=== PATIENT | female | born 1930 | race African-American/Black ===

== ENCOUNTER 2017-09-10 23:36 | Inpatient (IN) | payer MEDICARE, BC, MEDICAID ==
[~2017-09-10] VITALS: Ht 165.1 cm; Wt 89.4 kg
[~2017-09-10 23:36] MED LIST: ASPI-1073 PO; ATOR10TA PO; BACL-141 PO; BISA10SU97 PR; CILO100T PO; CITA20TA19 PO; DOCU250C14 PO; GABA100C PO; HYDR-3735 PO; MAG355OR39 PO; MAGN800O PO; METF500T4 PO; MONT10TA21 PO; PROP1DRO OP; TRAM50TA PO
[2017-09-11] MEDS ORDERED: OSELTAMIVIR 75MG CAPSULE PO ONE (00:45)
[2017-09-11] MEDS ORDERED: SODIUM CHLORIDE 0.9% 1000ML BAG (SEPSIS BOLUS) IV ONE (00:45)
[2017-09-11] MEDS ORDERED: LEVOFLOXACIN 750MG PREMIX 150 ML IV ONE (00:45)
[2017-09-11 02:05] LABS: BASOPHILS % 0.6 % (0.0-2.0); EOSINOPHILS % 0.1 % (0.0-5.0); HEMATOCRIT. 44.6 % (36.0-48.0); HEMOGLOBIN. 14.8 g/dL (12.0-16.0); LYMPHOCYTES % 9.1 % (20.0-50.0); MEAN CORPUSCULAR HEMOGLOBIN 28.3 pg (28.0-32.0); MEAN CORPUSCULAR VOLUME 85.1 fL (81.0-99.0); MEAN PLATELET VOLUME 8.1 fl (7.4-10.4); MONOCYTES % 3.8 % (2.0-8.0); NEUTROPHILS % 86.4 % (40.0-76.0); PLATELET 230 x1000/uL (130-400); RED BLOOD CELL COUNT 5.24 mill/uL (4.2-5.4); RED CELL DISTRIBUTION WIDTH 14.2 % (11.6-14.6)
[2017-09-11 02:09] LABS: PARTIAL THROMBOPLASTIN TIME 27.3 sec (23.4-31.0); PROTHROMBIN TIME 10.7 sec (9.4-11.6)
[2017-09-11 02:10] LABS: CHLORIDE 106 mEq/L (98-107)
[2017-09-11 02:15] LABS: TROPONIN I < 0.02 ng/mL (0.00-0.04)
[2017-09-11] MEDS ORDERED: LIDOCAINE HCL/PF 1% 10 MG/ML 5ML VIAL ONE (03:49)
[2017-09-11 04:49] LABS: CLARITY URINE CLEAR (CLEAR); COLOR URINE YELLOW (YELLOW); KETONES URINE NEGATIVE (NEGATIVE); LEUKOCYTE ESTERASE URINE NEGATIVE (NEGATIVE); NITRITE URINE NEGATIVE (NEGATIVE); OCCULT BLOOD URINE TRACE (NEGATIVE); PROTEIN URINE TRACE (NEGATIVE); SPECIFIC GRAVITY URINE 1.024 (1.005-1.030); UROBILINOGEN URINE 0.2 E.U./dL (0.2-1.0)
[2017-09-11 06:30] VITALS: BP 134/65
[2017-09-11 08:00] VITALS: BP 132/72
[2017-09-11] MEDS ORDERED: MAGNESIUM/ALUMINUM HYDROXIDE/SIMETHICONE 30ML UDC PO PRN ×2 (10:00→21:30)
[2017-09-11] MEDS ORDERED: ACETAMINOPHEN 650MG/20.3ML UDC GT PRN (10:00)
[2017-09-11] MEDS ORDERED: ONDANSETRON HCL 4MG/2ML VIAL IV PRN (10:00)
[2017-09-11] MEDS ORDERED: CEFTRIAXONE 500 MG in DEXTROSE 5% WATER 50 ML IV SCH (10:00)
[2017-09-11 10:18] VITALS: BP 132/72
[2017-09-11] MEDS ORDERED: CEFTRIAXONE 1 G PREMIX 50 ML IV SCH (11:00)
[2017-09-11] MEDS: ENOXAPARIN 40MG/0.4ML SYR SUBCUT SCH (11:52)
[2017-09-11] MEDS ORDERED: CEFEPIME 2,000 MG in DEXT 5% WATER 100 ML IV SCH (13:15)
[2017-09-11] MEDS ORDERED: IPRATROPIUM/ALBUTEROL 0.5-3(2.5)MG/3ML NEB HHN PRN (13:15)
[2017-09-11] MEDS: FAMOTIDINE 20MG TABLET PO SCH (15:48)
[2017-09-11] MEDS: METRONIDAZOLE 500 MG PREMIX 100 ML IV SCH ×2 (15:48→22:47)
[2017-09-11 16:00] VITALS: BP 134/78
[2017-09-11] MEDS ORDERED: BUDESONIDE 0.5MG/2ML NEB HHN SCH (18:00)
[2017-09-11] MEDS: CEFEPIME 2,000 MG in DEXT 5% WATER 100 ML IV SCH (18:02)
[2017-09-11 20:00] VITALS: BP 154/65
[2017-09-11] MEDS ORDERED: DEXTROSE 50% WATER 50ML SYRINGE IV PRN (20:30)
[2017-09-11] MEDS ORDERED: FAMOTIDINE 20MG TABLET PO SCH (21:00)
[2017-09-11] MEDS ORDERED: MEDICATION NOT ON FORMULARY EA (Fluticasone/Salmeterol (Advair 250-50 Diskus) 1 EACH) IH SCH (21:30)
[2017-09-11] MEDS ORDERED: MAGNESIUM HYDROXIDE PO PRN (21:30)
[2017-09-11] MEDS ORDERED: CYCLOSPORINE OP SCH (21:30)
[2017-09-11] MEDS ORDERED: HYDROXYZINE 10 MG TABLET PO PRN (21:30)
[2017-09-11] MEDS ORDERED: NEOM10DR11 RIGHT EAR (21:40)
[2017-09-11] MEDS ORDERED: OLOP2.5D EACHEYE (21:40)
[2017-09-11] MEDS ORDERED: FLUT1DIS3 IH (21:40)
[2017-09-11] MEDS ORDERED: DICL2.5D8 OP (21:40)
[2017-09-11] MEDS ORDERED: CYCL30DR OP (21:40)
[2017-09-11] MEDS ORDERED: OMEG-118 PO (21:40)
[2017-09-11] MEDS: IPRATROPIUM/ALBUTEROL 0.5-3(2.5)MG/3ML NEB HHN SCH (21:40)
[2017-09-11] MEDS ORDERED: GLIP10TA10 PO (21:40)
[2017-09-11] MEDS ORDERED: MULT-1146 PO (21:40)
[2017-09-11] MEDS ORDERED: MAGNESIUM HYDROXIDE 400MG/5ML 30ML UDC PO PRN (22:15)
[2017-09-11] MEDS: INSULIN LISPRO 100 UNITS/ML SUBCUT SCH (22:34)
[2017-09-11] MEDS: BLOOD SUGAR DIAGNOSTIC STRIP TEST SCH (22:43)
[2017-09-11] MEDS: GUAIFENESIN 600MG ER TABLET PO SCH (22:47)
[2017-09-11] MEDS: TRAMADOL 50MG TABLET PO PRN (22:50)
[2017-09-11] MEDS: CLONIDINE 0.1MG TABLET PO PRN (23:54)
[2017-09-12] VITALS (7 sets, daily range): BP systolic 116–177; BP diastolic 62–95
[2017-09-12] MEDS ORDERED: NEOMYCIN-POLYMYXIN B-HYDROCORTISONE 1% OTIC SOLN 10ML RIGHT EAR SCH
[2017-09-12] MEDS: POLYVINYL ALCOHOL OPHTH DROPS 15ML BOTHEYE PRN (00:29)
[2017-09-12] MEDS: BLOOD SUGAR DIAGNOSTIC STRIP TEST SCH ×4 (06:38→21:47)
[2017-09-12] MEDS: INSULIN LISPRO 100 UNITS/ML SUBCUT SCH ×4 (06:39→21:51)
[2017-09-12] MEDS: METRONIDAZOLE 500 MG PREMIX 100 ML IV SCH ×3 (06:40→21:34)
[2017-09-12 07:05] LABS: BASOPHILS % 0.3 % (0.0-2.0); EOSINOPHILS % 1.6 % (0.0-5.0); HEMATOCRIT. 35.5 % (36.0-48.0); HEMOGLOBIN. 12.3 g/dL (12.0-16.0); LYMPHOCYTES % 22.4 % (20.0-50.0); MEAN CORPUSCULAR HEMOGLOBIN 29.4 pg (28.0-32.0); MEAN CORPUSCULAR VOLUME 84.6 fL (81.0-99.0); MONOCYTES % 7.1 % (2.0-8.0); NEUTROPHILS % 68.6 % (40.0-76.0); PLATELET 172 x1000/uL (130-400)
[2017-09-12 07:38] LABS: CHLORIDE 109 mEq/L (98-107)
[2017-09-12] MEDS ORDERED: PEG OP SCH (09:00)
[2017-09-12] MEDS ORDERED: NEOMYCIN-POLYMYXIN-HYDROCORTISONE 1% OTIC SUSP 10ML RIGHT EAR SCH (09:00)
[2017-09-12] MEDS ORDERED: OLOPATADINE HCL EACHEYE SCH (09:00)
[2017-09-12] MEDS ORDERED: MEDICATION NOT ON FORMULARY EA (Multivitamin (Multi Vitamin Daily) 1 TAB) PO SCH (09:00)
[2017-09-12] MEDS ORDERED: BISACODYL 10MG SUPP PR PRN (09:00)
[2017-09-12] MEDS ORDERED: PROPYLENE GLYCOL OP SCH (09:00)
[2017-09-12] MEDS ORDERED: [UNRECOGNIZED DRUG - OTHER] OP SCH (09:00)
[2017-09-12] MEDS: IPRATROPIUM/ALBUTEROL 0.5-3(2.5)MG/3ML NEB HHN SCH ×3 (09:16→20:49)
[2017-09-12] MEDS: ASPIRIN 81MG EC TABLET PO SCH (09:41)
[2017-09-12] MEDS: FISH OIL/OMEGA-3 FATTY ACIDS 1000MG CAPSULE PO SCH ×2 (09:41→17:49)
[2017-09-12] MEDS: METFORMIN HCL 500MG TABLET PO SCH ×2 (09:41→17:53)
[2017-09-12] MEDS: LISINOPRIL 40MG TABLET PO SCH ×2 (09:41→21:32)
[2017-09-12] MEDS: BACLOFEN 10MG TABLET PO SCH ×2 (09:42→17:49)
[2017-09-12] MEDS: CILOSTAZOL 100MG TABLET PO SCH ×2 (09:42→17:47)
[2017-09-12] MEDS: GABAPENTIN 100MG CAPSULE PO SCH ×3 (09:42→17:51)
[2017-09-12] MEDS: MONTELUKAST SODIUM 10MG TABLET PO SCH (09:42)
[2017-09-12] MEDS: GUAIFENESIN 600MG ER TABLET PO SCH ×2 (09:42→21:00)
[2017-09-12] MEDS: CEFEPIME 2,000 MG in DEXT 5% WATER 100 ML IV SCH (09:43)
[2017-09-12] MEDS: MULTIVITAMINS,THER W-MINERALS TABLET PO SCH (09:43)
[2017-09-12] MEDS: ENOXAPARIN 40MG/0.4ML SYR SUBCUT SCH (09:43)
[2017-09-12] MEDS: FAMOTIDINE 20MG TABLET PO SCH (09:43)
[2017-09-12] MEDS: GLIPIZIDE 10MG TABLET PO SCH ×2 (09:43→17:49)
[2017-09-12] MEDS: DICLOFENAC SODIUM 0.1% OPHTH 2.5 ML BOTTLE BOTHEYE SCH ×2 (09:44→17:49)
[2017-09-12] MEDS: BUDESONIDE 0.5MG/2ML NEB HHN SCH (20:49)
[2017-09-12] MEDS: CITALOPRAM HYDROBROMIDE 20MG TABLET PO SCH (21:31)
[2017-09-12] MEDS: DOCUSATE SODIUM 250MG CAPSULE PO SCH (21:31)
[2017-09-12] MEDS: ATORVASTATIN CALCIUM 10MG TABLET PO SCH (21:31)
[2017-09-12] MEDS: TRAMADOL 50MG TABLET PO PRN (21:47)
[2017-09-13] VITALS: BP_SYST 104; BP_SYST 126; BP_DIAS 55; BP_DIAS 71
[2017-09-13] MEDS: IPRATROPIUM/ALBUTEROL 0.5-3(2.5)MG/3ML NEB HHN SCH ×4 (02:34→20:44)
[2017-09-13 04:00] VITALS: BP 122/55
[2017-09-13] MEDS: METRONIDAZOLE 500 MG PREMIX 100 ML IV SCH ×3 (05:11→22:19)
[2017-09-13] MEDS: INSULIN LISPRO 100 UNITS/ML SUBCUT SCH ×4 (05:51→21:00)
[2017-09-13] MEDS: BLOOD SUGAR DIAGNOSTIC STRIP TEST SCH ×4 (05:51→21:00)
[2017-09-13 08:00] VITALS: BP_SYST 128; BP_SYST 138; BP_DIAS 57; BP_DIAS 63
[2017-09-13] MEDS: BUDESONIDE 0.5MG/2ML NEB HHN SCH ×2 (08:46→20:44)
[2017-09-13] MEDS: CEFEPIME 2,000 MG in DEXT 5% WATER 100 ML IV SCH (09:06)
[2017-09-13] MEDS: CILOSTAZOL 100MG TABLET PO SCH ×2 (09:06→18:41)
[2017-09-13] MEDS: MONTELUKAST SODIUM 10MG TABLET PO SCH (09:07)
[2017-09-13] MEDS: GABAPENTIN 100MG CAPSULE PO SCH ×3 (09:07→18:41)
[2017-09-13] MEDS: GUAIFENESIN 600MG ER TABLET PO SCH ×2 (09:07→22:18)
[2017-09-13] MEDS: METFORMIN HCL 500MG TABLET PO SCH ×2 (09:07→18:41)
[2017-09-13] MEDS: FISH OIL/OMEGA-3 FATTY ACIDS 1000MG CAPSULE PO SCH ×2 (09:07→18:41)
[2017-09-13] MEDS: BACLOFEN 10MG TABLET PO SCH ×2 (09:07→18:41)
[2017-09-13] MEDS: ASPIRIN 81MG EC TABLET PO SCH (09:08)
[2017-09-13] MEDS: LISINOPRIL 40MG TABLET PO SCH ×2 (09:08→22:19)
[2017-09-13] MEDS: GLIPIZIDE 10MG TABLET PO SCH ×2 (09:08→18:41)
[2017-09-13] MEDS: FAMOTIDINE 20MG TABLET PO SCH (09:09)
[2017-09-13] MEDS: DICLOFENAC SODIUM 0.1% OPHTH 2.5 ML BOTTLE BOTHEYE SCH ×2 (09:09→18:41)
[2017-09-13] MEDS: MULTIVITAMINS,THER W-MINERALS TABLET PO SCH (09:09)
[2017-09-13] MEDS: ENOXAPARIN 40MG/0.4ML SYR SUBCUT SCH (09:09)
[2017-09-13 12:00] VITALS: BP 138/63
[2017-09-13 16:00] VITALS: BP 142/92
[2017-09-13 20:00] VITALS: BP 176/83
[2017-09-13] MEDS: DOCUSATE SODIUM 250MG CAPSULE PO SCH (21:00)
[2017-09-13] MEDS: ATORVASTATIN CALCIUM 10MG TABLET PO SCH (22:18)
[2017-09-13] MEDS: CITALOPRAM HYDROBROMIDE 20MG TABLET PO SCH (22:18)
[2017-09-14] MEDS: IPRATROPIUM/ALBUTEROL 0.5-3(2.5)MG/3ML NEB HHN SCH ×4 (01:05→20:06)
[2017-09-14 03:53] VITALS: BP 135/73
[2017-09-14] MEDS: METRONIDAZOLE 500 MG PREMIX 100 ML IV SCH ×2 (05:11→13:46)
[2017-09-14] MEDS: BLOOD SUGAR DIAGNOSTIC STRIP TEST SCH ×4 (05:51→20:53)
[2017-09-14] MEDS: INSULIN LISPRO 100 UNITS/ML SUBCUT SCH ×4 (05:51→20:53)
[2017-09-14] MEDS: METFORMIN HCL 500MG TABLET PO SCH ×2 (07:15→17:15)
[2017-09-14 08:00] VITALS: BP 110/58
[2017-09-14] MEDS: BUDESONIDE 0.5MG/2ML NEB HHN SCH ×2 (09:00→20:06)
[2017-09-14] MEDS: GLIPIZIDE 10MG TABLET PO SCH ×2 (09:00→18:14)
[2017-09-14] MEDS: GUAIFENESIN 600MG ER TABLET PO SCH ×2 (09:00→21:08)
[2017-09-14] MEDS: DICLOFENAC SODIUM 0.1% OPHTH 2.5 ML BOTTLE BOTHEYE SCH ×2 (09:00→18:52)
[2017-09-14] MEDS: CEFEPIME 2,000 MG in DEXT 5% WATER 100 ML IV SCH (10:56)
[2017-09-14] MEDS: CILOSTAZOL 100MG TABLET PO SCH ×2 (10:56→18:47)
[2017-09-14] MEDS: POLYVINYL ALCOHOL OPHTH DROPS 15ML BOTHEYE PRN (10:56)
[2017-09-14] MEDS: ASPIRIN 81MG EC TABLET PO SCH (10:57)
[2017-09-14] MEDS: MULTIVITAMINS,THER W-MINERALS TABLET PO SCH (10:57)
[2017-09-14] MEDS: FISH OIL/OMEGA-3 FATTY ACIDS 1000MG CAPSULE PO SCH ×2 (10:57→18:46)
[2017-09-14] MEDS: MONTELUKAST SODIUM 10MG TABLET PO SCH (10:57)
[2017-09-14] MEDS: FAMOTIDINE 20MG TABLET PO SCH (10:57)
[2017-09-14] MEDS: BACLOFEN 10MG TABLET PO SCH ×2 (10:57→18:46)
[2017-09-14] MEDS: GABAPENTIN 100MG CAPSULE PO SCH ×3 (10:57→18:46)
[2017-09-14] MEDS: LISINOPRIL 40MG TABLET PO SCH ×2 (10:57→21:08)
[2017-09-14] MEDS: ENOXAPARIN 40MG/0.4ML SYR SUBCUT SCH (10:58)
[2017-09-14 12:00] VITALS: BP 216/105
[2017-09-14 16:00] VITALS: BP 178/87
[2017-09-14] MEDS: CLONIDINE 0.1MG TABLET PO PRN (18:53)
[2017-09-14 20:00] VITALS: BP 125/66
[2017-09-14] MEDS: CITALOPRAM HYDROBROMIDE 20MG TABLET PO SCH (21:07)
[2017-09-14] MEDS: ATORVASTATIN CALCIUM 10MG TABLET PO SCH (21:08)
[2017-09-14] MEDS: DOCUSATE SODIUM 250MG CAPSULE PO SCH (21:08)
[2017-09-15] VITALS: BP 121/69
[2017-09-15] MEDS: METRONIDAZOLE 500 MG PREMIX 100 ML IV SCH ×3 (00:13→13:44)
[2017-09-15] MEDS: IPRATROPIUM/ALBUTEROL 0.5-3(2.5)MG/3ML NEB HHN SCH ×3 (01:50→15:18)
[2017-09-15 04:00] VITALS: BP 122/66
[2017-09-15] MEDS: INSULIN LISPRO 100 UNITS/ML SUBCUT SCH ×3 (06:58→17:15)
[2017-09-15] MEDS: BLOOD SUGAR DIAGNOSTIC STRIP TEST SCH ×4 (06:58→18:01)
[2017-09-15 08:00] VITALS: BP 107/74
[2017-09-15] MEDS: BUDESONIDE 0.5MG/2ML NEB HHN SCH (08:10)
[2017-09-15] MEDS: GUAIFENESIN 600MG ER TABLET PO SCH (09:00)
[2017-09-15] MEDS: LISINOPRIL 40MG TABLET PO SCH (09:00)
[2017-09-15] MEDS: ENOXAPARIN 40MG/0.4ML SYR SUBCUT SCH (09:16)
[2017-09-15] MEDS: BACLOFEN 10MG TABLET PO SCH ×2 (09:17→19:00)
[2017-09-15] MEDS: FISH OIL/OMEGA-3 FATTY ACIDS 1000MG CAPSULE PO SCH ×2 (09:17→19:00)
[2017-09-15] MEDS: CILOSTAZOL 100MG TABLET PO SCH ×2 (09:17→19:00)
[2017-09-15] MEDS: MONTELUKAST SODIUM 10MG TABLET PO SCH (09:17)
[2017-09-15] MEDS: CEFEPIME 2,000 MG in DEXT 5% WATER 100 ML IV SCH (09:17)
[2017-09-15] MEDS: DICLOFENAC SODIUM 0.1% OPHTH 2.5 ML BOTTLE BOTHEYE SCH ×2 (09:17→19:00)
[2017-09-15] MEDS: GABAPENTIN 100MG CAPSULE PO SCH ×3 (09:17→19:00)
[2017-09-15] MEDS: MULTIVITAMINS,THER W-MINERALS TABLET PO SCH (09:18)
[2017-09-15] MEDS: METFORMIN HCL 500MG TABLET PO SCH ×2 (09:18→17:15)
[2017-09-15] MEDS: GLIPIZIDE 10MG TABLET PO SCH ×2 (09:18→17:00)
[2017-09-15] MEDS: ASPIRIN 81MG EC TABLET PO SCH (09:18)
[2017-09-15] MEDS: FAMOTIDINE 20MG TABLET PO SCH (09:18)
[2017-09-15 12:00] VITALS: BP 145/74
[2017-09-15 16:00] VITALS: BP 177/79
[2017-09-15 16:53] VITALS: BP 177/79
== END 2017-09-15 20:15 | DRG 871 ==
LOC: ER 23:36 → 5WST 09-11 02:34 → ENRESERV 09-11 02:57
PROVIDERS: ADMIT Internal Medicine Nephrology; ATTEND Internal Medicine Nephrology
DX: A41.9 Sepsis, unspecified organism (principal); J18.9 Pneumonia, unspecified organism; J96.00 Acute respiratory failure, unspecified whether with hypoxia or hypercapnia; I69.354 Hemiplegia and hemiparesis following cerebral infarction affecting left non-dominant side; J44.1 Chronic obstructive pulmonary disease with (acute) exacerbation; J44.0 Chronic obstructive pulmonary disease with (acute) lower respiratory infection; D64.9 Anemia, unspecified; E11.42 Type 2 diabetes mellitus with diabetic polyneuropathy; E66.9 Obesity, unspecified; E78.00 Pure hypercholesterolemia, unspecified; F32.9 Major depressive disorder, single episode, unspecified; I10 Essential (primary) hypertension; K21.9 Gastro-esophageal reflux disease without esophagitis; F03.90 Unspecified dementia, unspecified severity, without behavioral disturbance, psychotic disturbance, mood disturbance, and anxiety; Z66 Do not resuscitate; Z74.01 Bed confinement status; Z87.891 Personal history of nicotine dependence; Z93.0 Tracheostomy status; Z79.899 Other long term (current) drug therapy
CPT/HCPCS: 36415; 36556; 51702; 70450; 71045; 80048; 80053; 81003; 82962; 83036; 83605; 83735; 83880; 84484; 85025; 85610; 85730; 86850; 86900; 87040; 87086; 87804; 93005; 94640; 96374; 97162; 99285; J0692; J0696; J1650; J1815; J1956; J3490; J7030; J7050; J7060; J7620; J7626; A4315

== ENCOUNTER 2020-03-02 11:40 | Inpatient (IN) | payer BC, MEDICAID ==
[~2020-03-02] VITALS: Ht 165.1 cm; Wt 82.1 kg
[~2020-03-02 11:40] MED LIST changes: +CYCL30DR OP; +DICL2.5D8 OP; +FLUT1DIS3 IH; +GLIP10TA10 PO; +METF-414 PO; -METF500T4 PO; +MULT-1146 PO; +NEOM10DR11 RIGHT EAR; +OLOP2.5D EACHEYE; +OMEG-118 PO
[2020-03-02] MEDS ORDERED: ACETAMINOPHEN 325MG TABLET PO PRN (12:45)
[2020-03-02] MEDS ORDERED: MORPHINE SULFATE 2 MG/ML CPJ (NOT FOR IM USE) IV PRN (12:45)
[2020-03-02] MEDS ORDERED: ONDANSETRON HCL 4MG/2ML INJ IV PRN (12:45)
[2020-03-02] MEDS ORDERED: CEFTRIAXONE 1 G PREMIX 50 ML IV SCH (13:00)
[2020-03-02 14:10] LABS: CLARITY URINE CLEAR (CLEAR); COLOR URINE YELLOW (YELLOW); KETONES URINE NEGATIVE (NEGATIVE); LEUKOCYTE ESTERASE URINE 2+ (NEGATIVE); NITRITE URINE NEGATIVE (NEGATIVE); OCCULT BLOOD URINE NEGATIVE (NEGATIVE); PROTEIN URINE NEGATIVE (NEGATIVE); SPECIFIC GRAVITY URINE 1.016 (1.005-1.030); UROBILINOGEN URINE 0.2 E.U./dL (0.2-1.0)
[2020-03-02] MEDS: SODIUM CHLORIDE 0.45% 1,000 ML IV SCH (14:52)
[2020-03-02 23:56] LABS: BASOPHILS % 0.7 % (0.0-2.0); EOSINOPHILS % 2.4 % (0.0-5.0); HEMATOCRIT. 38.5 % (36.0-48.0); HEMOGLOBIN. 12.7 g/dL (12.0-16.0); LYMPHOCYTES % 31.6 % (20.0-50.0); MEAN CORPUSCULAR HEMOGLOBIN 28.3 pg (28.0-32.0); MEAN CORPUSCULAR VOLUME 86.3 fL (81.0-99.0); MEAN PLATELET VOLUME 8.4 fl (7.4-10.4); MONOCYTES % 3.8 % (2.0-8.0); NEUTROPHILS % 61.5 % (40.0-76.0); PLATELET 221 x1000/uL (130-400); RED BLOOD CELL COUNT 4.47 mill/uL (4.2-5.4); RED CELL DISTRIBUTION WIDTH 14.1 % (11.6-14.6)
[2020-03-03 01:20] VITALS: BP 150/59
[2020-03-03] MEDS: SODIUM CHLORIDE 0.45% 1,000 ML IV SCH ×2 (01:33→13:42)
[2020-03-03] MEDS: INSULIN LISPRO 100 UNITS/ML SUBCUT SCH ×4 (08:00→21:00)
[2020-03-03] MEDS: BLOOD SUGAR DIAGNOSTIC STRIP TEST SCH ×4 (08:00→21:00)
[2020-03-03] MEDS ORDERED: DEXTROSE 50% WATER 50ML SYRINGE IV PRN (08:00)
[2020-03-03 08:01] LABS: BASOPHILS % 0.7 % (0.0-2.0); EOSINOPHILS % 2.8 % (0.0-5.0); HEMATOCRIT. 37.5 % (36.0-48.0); HEMOGLOBIN. 12.2 g/dL (12.0-16.0); MEAN CORPUSCULAR HEMOGLOBIN 28.2 pg (28.0-32.0); MEAN CORPUSCULAR VOLUME 86.3 fL (81.0-99.0); MEAN PLATELET VOLUME 7.9 fl (7.4-10.4); MONOCYTES % 6.9 % (2.0-8.0); NEUTROPHILS % 63.6 % (40.0-76.0); PLATELET 221 x1000/uL (130-400); RED BLOOD CELL COUNT 4.35 mill/uL (4.2-5.4); RED CELL DISTRIBUTION WIDTH 14.1 % (11.6-14.6)
[2020-03-03 08:20] LABS: CHLORIDE 112 mEq/L (98-107)
[2020-03-03 08:28] LABS: LDL CHOLESTEROL 51 mg/dL (5-100)
[2020-03-03 08:29] LABS: HDL CHOLESTEROL 38 mg/dL (40-59)
[2020-03-03] MEDS: ENOXAPARIN 40MG/0.4ML SYR SUBCUT SCH (09:00)
[2020-03-03 12:00] VITALS: BP 138/58
[2020-03-03] MEDS ORDERED: CEFTRIAXONE 1,000 MG in DEXTROSE 5% WATER 50 ML IV SCH (14:00)
[2020-03-03] MEDS ORDERED: FUROSEMIDE 40MG/4ML VIAL IVP NR (14:30)
[2020-03-03 20:00] VITALS: BP 165/90
[2020-03-04] VITALS: BP 165/75
[2020-03-04 04:00] VITALS: BP 145/81
[2020-03-04] MEDS: BLOOD SUGAR DIAGNOSTIC STRIP TEST SCH ×4 (07:31→21:56)
[2020-03-04] MEDS: INSULIN LISPRO 100 UNITS/ML SUBCUT SCH ×4 (07:32→21:59)
[2020-03-04 08:10] VITALS: BP 148/66
[2020-03-04] MEDS: ENOXAPARIN 40MG/0.4ML SYR SUBCUT SCH (08:42)
[2020-03-04] MEDS: AMLODIPINE 5MG TABLET PO SCH (08:42)
[2020-03-04 08:48] LABS: BASOPHILS % 0.8 % (0.0-2.0); EOSINOPHILS % 1.5 % (0.0-5.0); HEMATOCRIT. 41.7 % (36.0-48.0); HEMOGLOBIN. 13.8 g/dL (12.0-16.0); LYMPHOCYTES % 18.8 % (20.0-50.0); MEAN CORPUSCULAR HEMOGLOBIN 28.1 pg (28.0-32.0); MEAN CORPUSCULAR VOLUME 84.8 fL (81.0-99.0); MEAN PLATELET VOLUME 7.9 fl (7.4-10.4); MONOCYTES % 4.5 % (2.0-8.0); NEUTROPHILS % 74.4 % (40.0-76.0); PLATELET 245 x1000/uL (130-400); RED BLOOD CELL COUNT 4.91 mill/uL (4.2-5.4); RED CELL DISTRIBUTION WIDTH 14.4 % (11.6-14.6)
[2020-03-04 09:00] LABS: CHLORIDE 111 mEq/L (98-107)
[2020-03-04 12:00] VITALS: BP 154/74
[2020-03-04] MEDS: CLONIDINE 0.1MG TABLET PO PRN (16:19)
[2020-03-04 20:00] VITALS: BP 141/72
[2020-03-04] MEDS: NITROFURANTOIN 100MG M/M CAPSULE PO SCH (21:45)
[2020-03-05 04:00] VITALS: BP 142/58
[2020-03-05] MEDS: BLOOD SUGAR DIAGNOSTIC STRIP TEST SCH ×3 (07:20→17:45)
[2020-03-05] MEDS: INSULIN LISPRO 100 UNITS/ML SUBCUT SCH ×3 (07:50→17:46)
[2020-03-05 08:00] VITALS: BP 130/60
[2020-03-05] MEDS: AMLODIPINE 5MG TABLET PO SCH (09:33)
[2020-03-05] MEDS: ENOXAPARIN 40MG/0.4ML SYR SUBCUT SCH (09:33)
[2020-03-05] MEDS: NITROFURANTOIN 100MG M/M CAPSULE PO SCH (09:34)
[2020-03-05 12:04] LABS: BASOPHILS % 0.7 % (0.0-2.0); EOSINOPHILS % 2.9 % (0.0-5.0); HEMATOCRIT. 41.7 % (36.0-48.0); HEMOGLOBIN. 13.8 g/dL (12.0-16.0); LYMPHOCYTES % 24.8 % (20.0-50.0); MEAN CORPUSCULAR HEMOGLOBIN 28.1 pg (28.0-32.0); MEAN CORPUSCULAR VOLUME 85.3 fL (81.0-99.0); MEAN PLATELET VOLUME 8.1 fl (7.4-10.4); MONOCYTES % 6.9 % (2.0-8.0); NEUTROPHILS % 64.7 % (40.0-76.0); PLATELET 240 x1000/uL (130-400); RED BLOOD CELL COUNT 4.89 mill/uL (4.2-5.4); RED CELL DISTRIBUTION WIDTH 14.3 % (11.6-14.6)
[2020-03-05 12:06] LABS: CHLORIDE 112 mEq/L (98-107)
[2020-03-05] MEDS: CLONIDINE 0.1MG TABLET PO PRN (16:41)
[2020-03-05 16:47] VITALS: BP_SYST 133; BP_SYST 167; BP_DIAS 54; BP_DIAS 85
== END 2020-03-05 18:55 | DRG 690 ==
LOC: ER 12:01 → 6EST 17:02 → ENRESERV 20:47
PROVIDERS: ADMIT Internal Medicine Nephrology; ATTEND Internal Medicine Nephrology
DX: N39.0 Urinary tract infection, site not specified (principal); E11.9 Type 2 diabetes mellitus without complications; E78.5 Hyperlipidemia, unspecified; K21.9 Gastro-esophageal reflux disease without esophagitis; J44.9 Chronic obstructive pulmonary disease, unspecified; E86.9 Volume depletion, unspecified; I10 Essential (primary) hypertension; Z86.73 Personal history of transient ischemic attack (TIA), and cerebral infarction without residual deficits; Z87.440 Personal history of urinary (tract) infections; Z79.899 Other long term (current) drug therapy; Z20.828 Contact with and (suspected) exposure to other viral communicable diseases
CPT/HCPCS: 36415; 71045; 80048; 80053; 80061; 81003; 82962; 83036; 84484; 85025; 87077; 87635; 93005; 93306; 93970; 99285; J0696; J1650; J1815; J7060